=== PATIENT | male | born 1995 | race Caucasian/White ===

== ENCOUNTER 2017-07-26 14:20 | Emergency (ER) | payer BC ==
[~2017-07-26] VITALS: Ht 182.9 cm; Wt 115.7 kg
--- NOTE | 2017-07-26 14:58 | PHYS DOC ---
Past History Past Medical History: No Pertinent History Past Surgical History: No Surgical History Alcohol Use: None Drug Use: None Adult General Chief Complaint Chief Complaint: HYPERTENSION HPI HPI 22-year-old male presenting to the emergency department today with high blood pressure. He is a patient who was performing exertional activity over the past 3 days. Today he felt lightheaded and had to take a break around 11: 00. He started feeling better but they noticed his blood pressure was elevated around 150s systolic so they sent him here for evaluation. He denies any headache vision changes polyuria dysuria hematuria chest pain shortness of breath or abdominal pain. He has no other major medical conditions and denies any previous surgeries other than a minor foot surgery. onset today. location generalized. Review of systems is negative for fevers chills vision changes abdominal pain. All other review of systems is negative unless otherwise noted in history of present illness. ED course: 22-year-old male presenting the emergency department for evaluation for his high blood pressure. Patient is mildly hypertensive here at approximately 150 systolic. On repeat blood pressure monitoring, his blood pressures 140 systolic approximately. He is asymptomatic. We will refer the patient to a primary care physician for evaluation for high blood pressure in a more chronic setting. I will allow the patient to increase his activity level as he tolerates.The patient has been examined and was not found to have an emergency medical condition. The patient was then discharged home in stable condition to follow up with their primary care physician over the next 2-3 days. They were to return if their symptoms worsened or if they were concerned for any reason. [id number] discharge instructions and return precautions were given. Patient's questions were answered to their satisfaction. Patient is comfortable with plan. Review of Systems Review of Systems SEE ABOVE. Allergies Allergies Allergies Coded Allergies Type Severity Reaction Last Updated Verified No Known Drug Allergies 07/26/17 No Physical Exam Physical Exam SEE ABOVE Constitutional: Well developed, well nourished, no acute distress, non-toxic appearance. HENT: Normocephalic, atraumatic, bilateral external ears normal, oropharynx moist, no oral exudates, nose normal. [] Eyes: PERRLA, EOMI, conjunctiva normal, no discharge. Neck: Normal range of motion, no tenderness, supple, no stridor. [] Cardiovascular:Heart rate regular rhythm, no murmur Lungs & Thorax: Bilateral breath sounds clear to auscultation [] Abdomen: Bowel sounds normal, soft, no tenderness, no masses, no pulsatile masses. Skin: Warm, dry, no erythema, no rash. [] Back: No tenderness, no CVA tenderness. Extremities: No tenderness, no cyanosis, no clubbing, ROM intact, no edema. [] Neurologic: Alert and oriented X 3, normal motor function, normal sensory function, no focal deficits noted. [] Psychologic: Affect normal, judgement normal, mood normal. EKG EKG [] Radiology/Procedures Radiology/Procedures [] Course & Med Decision Making Course & Med Decision Making Pertinent Labs and Imaging studies reviewed. (See chart for details) [] Dragon Disclaimer Dragon Disclaimer This electronic medical record was generated, in whole or in part, using a voice recognition dictation system. Departure Departure: Impression: Primary Impression: High blood pressure Disposition: HOME, SELF-CARE Condition: STABLE Referrals: PCP,JUWAN (PCP) MAMTA AGUILA MD Patient Instructions: Hypertension, [id number] Additional Instructions: Thank you for allowing us to participate in your care today. Followup with your primary care physician for evaluation of possible chronic high blood pressure and possible treatment. Call your Primary Doctor tomorrow and inform them of your visit today. If you do not have a primary care provider you can ask for a list of our primary care providers. Return to the emergency department you have any new or concerning findings. This should be evaluated by the primary care physician and any necessary consulting services for continued management within a few days after discharge. Return to emergency room if you have any new or concerning symptoms including but not limited to fever, chills, nausea, vomiting, intractable pain, any new rashes, chest pain, shortness of air, uncontrolled bleeding, difficulty breathing, and/or vision loss. If at any time, you are having difficulty getting into your primary care doctor or a specialist, return to the emergency department. GINGER REGALADO MD July 26, 2017 14:58
[2017-07-26 15:15] VITALS: BP 146/89
== END 2017-07-26 15:15 | disposition home or self-care (01) ==
LOC: ER 14:20
DX: I10 Essential (primary) hypertension (principal)
CPT/HCPCS: 99281